=== PATIENT | male | born 1940 | race Caucasian/White ===

== ENCOUNTER → 2018-01-28 | Outpatient (CLI) | payer OTHER | LOC: M CARPUL 09:53 | DX: E78.2 Mixed hyperlipidemia (principal); I35.8 Other nonrheumatic aortic valve disorders | CPT/HCPCS: 93306 ==

== ENCOUNTER → 2023-02-19 | Outpatient (REF) | payer OTHER | LOC: M SFHCDERM 17:19 | PROVIDERS: ATTEND Nurse Practitioner Family | DX: L57.0 Actinic keratosis (principal); L57.8 Other skin changes due to chronic exposure to nonionizing radiation ==

== ENCOUNTER → 2023-07-21 | Outpatient (REF) | payer OTHER | LOC: M SFHCDERM 17:30 | PROVIDERS: ATTEND Dermatology | DX: L90.5 Scar conditions and fibrosis of skin (principal) ==